=== PATIENT | female | born 1960 | race Caucasian/White ===

== ENCOUNTER 2020-12-26 12:13 | Inpatient (IN) | payer OTHER ==
[2020-12-26 13:13] LABS: #Basophils 0.1 10x3/uL (0.0-0.2); #Eosinphils 0.2 10x3/uL (0.0-0.5); #Monocytes 0.5 10x3/uL (0.0-1.1); #Neutrophils 6.5 10x3/uL (1.5-8.4); %Basophils 0.7 % (0.0-2.0); %Eosinophils 1.9 % (0.0-6.0); %Lymphocytes 12.8 % (18.0-47.0); %Monocytes 5.8 % (0.0-10.0); %Neutrophils 78.6 % (40.0-75.0); Hemoglobin 13.7 g/dL (12.0-15.5); Mean Corpuscular HGB CONC 32.3 g/dL (32.0-36.0); Mean Corpuscular Hemoglobin 29.8 pg (27.0-33.0); Mean Corpuscular Volume 92.2 fl (81.6-98.3); Mean Platelet Volume 9.1 fl (7.4-10.4); Platelet Count 251 10x3/uL (150-450); RBC Distribution Width 13.8 % (11.5-14.5); White Blood Cell (WBC) Count 8.3 10x3/uL (3.5-10.5)
[2020-12-26 13:27] LABS: ALT (SGPT) 14 U/L (8-55); AST (SGOT) 13 U/L (5-34); Albumin 4.1 g/dL (3.5-5.0); Alkaline Phosphatase 79 U/L (40-110); Anion Gap 14 mmol/L (10-20); BUN (Urea Nitrogen) 5 mg/dL (9.8-20.1); Bilirubin, Total 0.4 mg/dL (0.2-1.2); Calc. Creatinine Clearance 0 mL/min (70-130); Calcium 9.3 mg/dL (7.8-10.44); Carbon Dioxide 25 mmol/L (22-29); Chloride 105 mmol/L (98-107); Glucose 92 mg/dL (70-105); Potassium 3.8 mmol/L (3.5-5.1); Protein, Total 7.1 g/dL (6.0-8.3); Sodium 140 mmol/L (136-145)
[2020-12-26] MEDS ORDERED: methylPREDNISolone Sod Succ/PF 125 MG/2 ML VIAL ONE (14:10)
[2020-12-26] MEDS ORDERED: Magnesium 2 GM/50 ML BAG (IN WATER) ONE (14:10)
[2020-12-26] MEDS ORDERED: Cefepime 2 GM VIAL ONE (14:51)
[2020-12-26 14:54] LABS: SARS-CoV-2 NAA Rapid Test Not Detected (NotDetected)
[2020-12-26] MEDS ORDERED: Ondansetron PF 4 MG/2 ML Vial ONE (15:03)
[2020-12-26 20:47] VITALS: BMI 45.3
[2020-12-26] MEDS ORDERED: Apixaban 5 MG TAB PO SCH (22:45)
[2020-12-26] MEDS ORDERED: Rosuvastatin 20 MG TAB PO SCH (23:00)
[2020-12-26] MEDS ORDERED: buPROPion 75 MG TAB PO SCH (23:00)
[2020-12-26] MEDS ORDERED: Metoprolol Tartrate 25 MG TAB PO SCH (23:00)
[2020-12-26] MEDS: methylPREDNISolone Sod Succ 40 MG VIAL IVP SCH (23:01)
[2020-12-26] MEDS: Acetaminophen 325 MG TAB PO PRN (23:04)
[2020-12-27 04:13] LABS: Anion Gap 15 mmol/L (10-20); BUN (Urea Nitrogen) 7 mg/dL (9.8-20.1); Calc. Creatinine Clearance 139 mL/min (70-130); Calcium 9.1 mg/dL (7.8-10.44); Carbon Dioxide 23 mmol/L (22-29); Chloride 107 mmol/L (98-107); Glucose 149 mg/dL (70-105); Potassium 4.2 mmol/L (3.5-5.1); Sodium 141 mmol/L (136-145)
[2020-12-27 04:21] LABS: #Monocytes 0.1 10x3/uL (0.0-1.1); #Neutrophils 5.3 10x3/uL (1.5-8.4); %Basophils 0.2 % (0.0-2.0); %Lymphocytes 9.1 % (18.0-47.0); %Neutrophils 89.2 % (40.0-75.0); Hemoglobin 13.3 g/dL (12.0-15.5); Mean Corpuscular HGB CONC 32.7 g/dL (32.0-36.0); Mean Corpuscular Volume 91.9 fl (81.6-98.3); Mean Platelet Volume 9.3 fl (7.4-10.4); Platelet Count 278 10x3/uL (150-450); RBC Distribution Width 13.9 % (11.5-14.5); Red Blood Cell (RBC) Count 4.43 10x6/uL (3.90-5.03)
[2020-12-27] MEDS: methylPREDNISolone Sod Succ 40 MG VIAL IVP SCH ×4 (04:36→20:27)
[2020-12-27] MEDS: Budesonide 0.5 MG/2 ML NEB NEB PRN (06:55)
[2020-12-27] MEDS: Mometasone/Formoterol 200/5 60 PUFF INH SCH ×2 (07:01→18:50)
[2020-12-27] MEDS: Clopidogrel Bisulfate 75 MG TAB PO SCH (10:47)
[2020-12-27] MEDS: buPROPion 75 MG TAB PO SCH ×2 (10:47→20:28)
[2020-12-27] MEDS: Apixaban 5 MG TAB PO SCH ×2 (10:48→20:27)
[2020-12-27] MEDS: Lisinopril 2.5 MG TAB PO SCH (10:49)
[2020-12-27] MEDS: guaiFENesin ER 600 MG TAB PO SCH ×2 (10:49→20:34)
[2020-12-27] MEDS: Metoprolol Tartrate 25 MG TAB PO SCH ×2 (10:49→20:27)
[2020-12-27] MEDS: Acetaminophen 325 MG TAB PO PRN ×3 (10:59→20:29)
[2020-12-27] MEDS: Rosuvastatin 20 MG TAB PO SCH (20:29)
[2020-12-27] MEDS: GUAIFENESIN SF SOLN 200 MG/10 ML UDCUP PO PRN (21:59)
[2020-12-28] MEDS: methylPREDNISolone Sod Succ 40 MG VIAL IVP SCH ×2 (03:09→21:47)
[2020-12-28] MEDS: GUAIFENESIN SF SOLN 200 MG/10 ML UDCUP PO PRN ×2 (03:14→21:47)
[2020-12-28 05:03] LABS: #Monocytes 0.2 10x3/uL (0.0-1.1); #Neutrophils 9.9 10x3/uL (1.5-8.4); %Basophils 0.1 % (0.0-2.0); %Lymphocytes 6.3 % (18.0-47.0); %Monocytes 1.7 % (0.0-10.0); %Neutrophils 91.4 % (40.0-75.0); Hemoglobin 13.1 g/dL (12.0-15.5); Mean Corpuscular HGB CONC 31.9 g/dL (32.0-36.0); Mean Corpuscular Hemoglobin 29.6 pg (27.0-33.0); Mean Corpuscular Volume 92.8 fl (81.6-98.3); Mean Platelet Volume 9.4 fl (7.4-10.4); Platelet Count 291 10x3/uL (150-450); RBC Distribution Width 14.2 % (11.5-14.5); Red Blood Cell (RBC) Count 4.43 10x6/uL (3.90-5.03); White Blood Cell (WBC) Count 10.9 10x3/uL (3.5-10.5)
[2020-12-28 05:15] LABS: Anion Gap 15 mmol/L (10-20); BUN (Urea Nitrogen) 10 mg/dL (9.8-20.1); Calc. Creatinine Clearance 129 mL/min (70-130); Calcium 9.1 mg/dL (7.8-10.44); Carbon Dioxide 24 mmol/L (22-29); Chloride 106 mmol/L (98-107); Glucose 226 mg/dL (70-105); Sodium 141 mmol/L (136-145)
[2020-12-28] MEDS: Mometasone/Formoterol 200/5 60 PUFF INH SCH ×2 (06:50→18:45)
[2020-12-28] MEDS: Apixaban 5 MG TAB PO SCH ×2 (08:42→21:47)
[2020-12-28] MEDS: Metoprolol Tartrate 25 MG TAB PO SCH ×2 (08:42→21:48)
[2020-12-28] MEDS: guaiFENesin ER 600 MG TAB PO SCH ×2 (08:42→22:00)
[2020-12-28] MEDS: Lisinopril 2.5 MG TAB PO SCH (08:42)
[2020-12-28] MEDS: buPROPion 75 MG TAB PO SCH ×2 (08:43→21:47)
[2020-12-28] MEDS: Acetaminophen 325 MG TAB PO PRN (08:43)
[2020-12-28] MEDS: Clopidogrel Bisulfate 75 MG TAB PO SCH (08:43)
[2020-12-28] MEDS ORDERED: FLU VACC QS2021-22(6MOS UP)/PF 60 MCG/0.5 ML SYRINGE IM ONE (09:00)
[2020-12-28] MEDS ORDERED: methylPREDNISolone Sod Succ 40 MG VIAL IVP SCH (09:00)
[2020-12-28] MEDS: Budesonide 0.5 MG/2 ML NEB NEB PRN (18:45)
[2020-12-28] MEDS: Rosuvastatin 20 MG TAB PO SCH (21:49)
[2020-12-29 04:13] LABS: Anion Gap 14 mmol/L (10-20); BUN (Urea Nitrogen) 14 mg/dL (9.8-20.1); Calc. Creatinine Clearance 143 mL/min (70-130); Calcium 9.1 mg/dL (7.8-10.44); Carbon Dioxide 27 mmol/L (22-29); Chloride 106 mmol/L (98-107); Glucose 130 mg/dL (70-105); Potassium 4.6 mmol/L (3.5-5.1); Sodium 142 mmol/L (136-145)
[2020-12-29 04:16] LABS: #Monocytes 0.3 10x3/uL (0.0-1.1); #Neutrophils 7.4 10x3/uL (1.5-8.4); %Basophils 0.2 % (0.0-2.0); %Lymphocytes 8.9 % (18.0-47.0); %Monocytes 3.4 % (0.0-10.0); %Neutrophils 86.4 % (40.0-75.0); Hemoglobin 13.3 g/dL (12.0-15.5); Mean Corpuscular HGB CONC 30.9 g/dL (32.0-36.0); Mean Corpuscular Volume 93.9 fl (81.6-98.3); Mean Platelet Volume 9.5 fl (7.4-10.4); Platelet Count 312 10x3/uL (150-450); RBC Distribution Width 14.3 % (11.5-14.5); Red Blood Cell (RBC) Count 4.58 10x6/uL (3.90-5.03); White Blood Cell (WBC) Count 8.5 10x3/uL (3.5-10.5)
[2020-12-29] MEDS: Mometasone/Formoterol 200/5 60 PUFF INH SCH ×2 (09:05→19:00)
[2020-12-29] MEDS: Acetaminophen 325 MG TAB PO PRN ×2 (10:17→20:57)
[2020-12-29] MEDS: guaiFENesin ER 600 MG TAB PO SCH (10:18)
[2020-12-29] MEDS: Metoprolol Tartrate 25 MG TAB PO SCH ×2 (10:18→20:57)
[2020-12-29] MEDS: Apixaban 5 MG TAB PO SCH ×2 (10:18→20:57)
[2020-12-29] MEDS: Clopidogrel Bisulfate 75 MG TAB PO SCH (10:18)
[2020-12-29] MEDS: Lisinopril 2.5 MG TAB PO SCH (10:19)
[2020-12-29] MEDS: buPROPion 75 MG TAB PO SCH ×2 (10:19→20:57)
[2020-12-29] MEDS: methylPREDNISolone Sod Succ 40 MG VIAL IVP SCH ×2 (10:20→20:58)
[2020-12-29] MEDS: Rosuvastatin 20 MG TAB PO SCH (20:56)
[2020-12-29] MEDS: GUAIFENESIN SF SOLN 200 MG/10 ML UDCUP PO PRN (20:57)
[2020-12-30] MEDS: Budesonide 0.5 MG/2 ML NEB NEB PRN (08:50)
[2020-12-30] MEDS: Mometasone/Formoterol 200/5 60 PUFF INH SCH ×2 (09:01→19:25)
[2020-12-30] MEDS: guaiFENesin ER 600 MG TAB PO SCH ×2 (09:09→21:47)
[2020-12-30] MEDS: Apixaban 5 MG TAB PO SCH ×2 (09:09→21:47)
[2020-12-30] MEDS: Clopidogrel Bisulfate 75 MG TAB PO SCH (09:09)
[2020-12-30] MEDS: Metoprolol Tartrate 25 MG TAB PO SCH ×2 (09:09→21:47)
[2020-12-30] MEDS: Lisinopril 2.5 MG TAB PO SCH (09:10)
[2020-12-30] MEDS: buPROPion 75 MG TAB PO SCH ×2 (09:10→21:47)
[2020-12-30] MEDS: methylPREDNISolone Sod Succ 40 MG VIAL IVP SCH ×2 (09:10→21:47)
[2020-12-30 09:15] LABS: #Monocytes 0.4 10x3/uL (0.0-1.1); #Neutrophils 6.7 10x3/uL (1.5-8.4); %Basophils 0.2 % (0.0-2.0); %Lymphocytes 13.6 % (18.0-47.0); %Monocytes 4.5 % (0.0-10.0); %Neutrophils 80.4 % (40.0-75.0); Hemoglobin 14.2 g/dL (12.0-15.5); Mean Corpuscular HGB CONC 32.3 g/dL (32.0-36.0); Mean Corpuscular Hemoglobin 29.6 pg (27.0-33.0); Mean Corpuscular Volume 91.6 fl (81.6-98.3); Mean Platelet Volume 9.2 fl (7.4-10.4); Platelet Count 336 10x3/uL (150-450); RBC Distribution Width 14.2 % (11.5-14.5); Red Blood Cell (RBC) Count 4.79 10x6/uL (3.90-5.03); White Blood Cell (WBC) Count 8.4 10x3/uL (3.5-10.5)
[2020-12-30 09:37] LABS: ALT (SGPT) 15 U/L (8-55); AST (SGOT) 13 U/L (5-34); Alkaline Phosphatase 66 U/L (40-110); Anion Gap 15 mmol/L (10-20); BUN (Urea Nitrogen) 14 mg/dL (9.8-20.1); Bilirubin, Total 0.2 mg/dL (0.2-1.2); Calc. Creatinine Clearance 143 mL/min (70-130); Calcium 9.2 mg/dL (7.8-10.44); Carbon Dioxide 27 mmol/L (22-29); Chloride 103 mmol/L (98-107); Glucose 126 mg/dL (70-105); Magnesium 2.2 mg/dL (1.6-2.6); Phosphorus 3.9 mg/dL (2.3-4.7); Sodium 141 mmol/L (136-145)
[2020-12-30 09:44] LABS: Hemoglobin A1c 5.6 % (4.0-6.0)
[2020-12-30] MEDS ORDERED: Polyethylene Glycol 3350 17 GM Packet PO SCH (16:30)
[2020-12-30] MEDS ORDERED: Fluticasone Propionate Nasal Spray 16 gm Bottle NASAL SCH (21:00)
[2020-12-30] MEDS ORDERED: Senokot 8.6 MG TAB PO SCH (21:00)
[2020-12-30] MEDS: Rosuvastatin 20 MG TAB PO SCH (21:47)
[2020-12-31 05:49] LABS: #Monocytes 0.2 10x3/uL (0.0-1.1); #Neutrophils 5.6 10x3/uL (1.5-8.4); %Basophils 0.1 % (0.0-2.0); %Monocytes 3.5 % (0.0-10.0); %Neutrophils 83.1 % (40.0-75.0); Hemoglobin 13.7 g/dL (12.0-15.5); Mean Corpuscular HGB CONC 31.4 g/dL (32.0-36.0); Mean Corpuscular Hemoglobin 29.3 pg (27.0-33.0); Mean Corpuscular Volume 93.4 fl (81.6-98.3); Mean Platelet Volume 9.4 fl (7.4-10.4); Platelet Count 325 10x3/uL (150-450); RBC Distribution Width 14.3 % (11.5-14.5); Red Blood Cell (RBC) Count 4.67 10x6/uL (3.90-5.03); White Blood Cell (WBC) Count 6.8 10x3/uL (3.5-10.5)
[2020-12-31 06:00] LABS: ALT (SGPT) 21 U/L (8-55); AST (SGOT) 19 U/L (5-34); Albumin 3.8 g/dL (3.5-5.0); Alkaline Phosphatase 65 U/L (40-110); Anion Gap 17 mmol/L (10-20); BUN (Urea Nitrogen) 16 mg/dL (9.8-20.1); Bilirubin, Total 0.2 mg/dL (0.2-1.2); Calc. Creatinine Clearance 145 mL/min (70-130); Calcium 8.9 mg/dL (7.8-10.44); Carbon Dioxide 26 mmol/L (22-29); Chloride 103 mmol/L (98-107); Globulin 2.4 g/dL (2.4-3.5); Glucose 129 mg/dL (70-105); Magnesium 2.1 mg/dL (1.6-2.6); Phosphorus 4.4 mg/dL (2.3-4.7); Potassium 4.5 mmol/L (3.5-5.1); Protein, Total 6.2 g/dL (6.0-8.3); Sodium 141 mmol/L (136-145)
[2020-12-31] MEDS: Mometasone/Formoterol 200/5 60 PUFF INH SCH (07:40)
[2020-12-31] MEDS: Budesonide 0.5 MG/2 ML NEB NEB PRN (07:40)
[2020-12-31] MEDS ORDERED: Polyethylene Glycol 3350 17 GM Packet PO SCH (09:00)
[2020-12-31] MEDS: Apixaban 5 MG TAB PO SCH (10:32)
[2020-12-31] MEDS: methylPREDNISolone Sod Succ 40 MG VIAL IVP SCH (10:32)
[2020-12-31] MEDS: Metoprolol Tartrate 25 MG TAB PO SCH (10:32)
[2020-12-31] MEDS: guaiFENesin ER 600 MG TAB PO SCH (10:32)
[2020-12-31] MEDS: Clopidogrel Bisulfate 75 MG TAB PO SCH (10:32)
[2020-12-31] MEDS: buPROPion 75 MG TAB PO SCH (10:33)
[2020-12-31] MEDS: Lisinopril 2.5 MG TAB PO SCH (10:33)
[2020-12-31 17:34] VITALS: BP 122/77
[2020-12-31 17:45] VITALS: TEMP 96.6
== END 2020-12-31 17:27 | disposition home or self-care (01) | DRG 189 ==
LOC: CSHERS 12:13 → UNDOADMOB 12:14 → CSHTELE 12:14 → OBSVTOIN 12-28 15:24
PROVIDERS: ADMIT Internal Medicine; ATTEND Family Medicine
DX: J96.01 Acute respiratory failure with hypoxia (principal); J44.1 Chronic obstructive pulmonary disease with (acute) exacerbation; Z20.822 Contact with and (suspected) exposure to COVID-19; E78.5 Hyperlipidemia, unspecified; I25.10 Atherosclerotic heart disease of native coronary artery without angina pectoris; G47.33 Obstructive sleep apnea (adult) (pediatric); D35.01 Benign neoplasm of right adrenal gland; K76.89 Other specified diseases of liver; F31.76 Bipolar disorder, in full remission, most recent episode depressed; I10 Essential (primary) hypertension; R73.9 Hyperglycemia, unspecified; Z88.0 Allergy status to penicillin; Z79.01 Long term (current) use of anticoagulants; Z79.899 Other long term (current) drug therapy; Z86.711 Personal history of pulmonary embolism; Z86.718 Personal history of other venous thrombosis and embolism; Z87.891 Personal history of nicotine dependence; Z95.5 Presence of coronary angioplasty implant and graft
CPT/HCPCS: 36415; 71045; 80048; 80053; 83036; 83605; 83735; 83880; 84100; 84484; 85025; 87040; 93005; 94640; 94664; 94760; 94762; 96376; G0378; J0692; J1956; J2405; J2920; J2930; J3475; J7620; J7626; U0002

== ENCOUNTER 2021-03-14 18:08 | Inpatient (IN) | payer BC, OTHER ==
[2021-03-14 18:55] LABS: #Basophils 0.1 10x3/uL (0.0-0.2); #Eosinphils 0.1 10x3/uL (0.0-0.5); #Monocytes 0.8 10x3/uL (0.0-1.1); #Neutrophils 9.8 10x3/uL (1.5-8.4); %Basophils 0.5 % (0.0-2.0); %Eosinophils 0.8 % (0.0-6.0); %Lymphocytes 14.8 % (18.0-47.0); %Neutrophils 77.4 % (40.0-75.0); Hemoglobin 11.9 g/dL (12.0-15.5); Mean Corpuscular Hemoglobin 29.7 pg (27.0-33.0); Mean Corpuscular Volume 92.8 fl (81.6-98.3); Mean Platelet Volume 9.2 fl (7.4-10.4); Platelet Count 329 10x3/uL (150-450); RBC Distribution Width 13.4 % (11.5-14.5); Red Blood Cell (RBC) Count 4.01 10x6/uL (3.90-5.03); White Blood Cell (WBC) Count 12.7 10x3/uL (3.5-10.5)
[2021-03-14 19:08] LABS: ALT (SGPT) 11 U/L (8-55); AST (SGOT) 14 U/L (5-34); Albumin 3.9 g/dL (3.5-5.0); Alkaline Phosphatase 90 U/L (40-110); Anion Gap 16 mmol/L (10-20); BUN (Urea Nitrogen) 6 mg/dL (9.8-20.1); Bilirubin, Total 0.2 mg/dL (0.2-1.2); Calc. Creatinine Clearance 0 mL/min (70-130); Calcium 8.6 mg/dL (7.8-10.44); Carbon Dioxide 30 mmol/L (22-29); Chloride 98 mmol/L (98-107); Globulin 2.4 g/dL (2.4-3.5); Glucose 111 mg/dL (70-105); Potassium 3.5 mmol/L (3.5-5.1); Protein, Total 6.3 g/dL (6.0-8.3); Sodium 140 mmol/L (136-145)
[2021-03-14] MEDS ORDERED: Ventolin HFA Inhaler 60 PUFF INHALER ONE (20:19)
[2021-03-14] MEDS ORDERED: Dexamethasone 10 MG/ML VIAL ONE (20:19)
[2021-03-14 21:40] LABS: SARS-CoV-2 NAA Rapid Test Not Detected (NotDetected)
[2021-03-15] MEDS ORDERED: Senokot S 8.6-50 MG TAB PO PRN (04:54)
[2021-03-15] MEDS ORDERED: cefTRIAXone\\ROCEPHIN 2 GM VIAL ONE (05:11)
[2021-03-15] MEDS ORDERED: Azithromycin 500 MG VIAL ONE (05:11)
[2021-03-15] MEDS: cefTRIAXone\\ROCEPHIN 2 GM in Sodium Chloride 0.9% 100 ML IVPB SCH (05:20)
[2021-03-15] MEDS ORDERED: methylPREDNISolone Sod Succ 40 MG VIAL ONE (05:42)
[2021-03-15] MEDS ORDERED: Acetaminophen 325 MG TAB ONE (05:57)
[2021-03-15] MEDS: Azithromycin 500 MG in Sodium Chloride 0.9% 250 ML 250 ML IVPB SCH (06:04)
[2021-03-15] MEDS: methylPREDNISolone Sod Succ 40 MG VIAL IVP SCH ×3 (06:05→17:04)
[2021-03-15] MEDS: Acetaminophen 325 MG TAB PO PRN ×3 (06:05→20:20)
[2021-03-15 06:20] LABS: #Monocytes 0.1 10x3/uL (0.0-1.1); #Neutrophils 8.7 10x3/uL (1.5-8.4); %Basophils 0.3 % (0.0-2.0); %Lymphocytes 8.6 % (18.0-47.0); %Neutrophils 88.6 % (40.0-75.0); Hemoglobin 12.1 g/dL (12.0-15.5); Mean Corpuscular HGB CONC 32.3 g/dL (32.0-36.0); Mean Corpuscular Hemoglobin 29.7 pg (27.0-33.0); Mean Corpuscular Volume 92.1 fl (81.6-98.3); Mean Platelet Volume 9.1 fl (7.4-10.4); Platelet Count 343 10x3/uL (150-450); RBC Distribution Width 13.2 % (11.5-14.5); Red Blood Cell (RBC) Count 4.07 10x6/uL (3.90-5.03); White Blood Cell (WBC) Count 9.8 10x3/uL (3.5-10.5)
[2021-03-15 06:36] LABS: Anion Gap 17 mmol/L (10-20); BUN (Urea Nitrogen) 8 mg/dL (9.8-20.1); Calc. Creatinine Clearance 0 mL/min (70-130); Calcium 9.4 mg/dL (7.8-10.44); Carbon Dioxide 27 mmol/L (22-29); Chloride 99 mmol/L (98-107); Glucose 145 mg/dL (70-105); Magnesium 1.9 mg/dL (1.6-2.6); Potassium 3.7 mmol/L (3.5-5.1); Sodium 139 mmol/L (136-145)
[2021-03-15] MEDS ORDERED: Budesonide 0.5 MG/2 ML NEB ONE (06:42)
[2021-03-15] MEDS: Budesonide 0.5 MG/2 ML NEB NEB SCH ×2 (06:45→19:12)
[2021-03-15 08:54] VITALS: BMI 46.7
[2021-03-15] MEDS: buPROPion 75 MG TAB PO SCH ×2 (09:01→20:14)
[2021-03-15] MEDS: Ezetimibe 10 MG TAB PO SCH (09:01)
[2021-03-15] MEDS: Apixaban 5 MG TAB PO SCH ×2 (09:02→20:13)
[2021-03-15] MEDS: Clopidogrel Bisulfate 75 MG TAB PO SCH (09:02)
[2021-03-15] MEDS: Metoprolol Tartrate 25 MG TAB PO SCH ×2 (09:03→20:13)
[2021-03-15] MEDS: Lisinopril 10 MG TAB PO SCH (09:04)
[2021-03-15] MEDS: Nicotine 21 MG PATCH TD SCH (09:05)
[2021-03-15] MEDS: Arformoterol 15 MCG/2 ML NEB NEB SCH ×2 (09:06→19:12)
[2021-03-15] MEDS ORDERED: Gabapentin 100 MG CAP PO PRN (12:17)
[2021-03-15] MEDS: Rosuvastatin 20 MG TAB PO SCH (20:13)
[2021-03-16] MEDS: methylPREDNISolone Sod Succ 40 MG VIAL IVP SCH ×5 (00:04→21:23)
[2021-03-16 04:32] LABS: #Basophils 0.1 10x3/uL (0.0-0.2); #Monocytes 0.6 10x3/uL (0.0-1.1); #Neutrophils 10.3 10x3/uL (1.5-8.4); %Basophils 0.4 % (0.0-2.0); %Lymphocytes 9.4 % (18.0-47.0); %Monocytes 4.5 % (0.0-10.0); %Neutrophils 82.5 % (40.0-75.0); Hemoglobin 11.9 g/dL (12.0-15.5); Mean Corpuscular HGB CONC 32.2 g/dL (32.0-36.0); Mean Corpuscular Hemoglobin 29.7 pg (27.0-33.0); Mean Platelet Volume 9.2 fl (7.4-10.4); Platelet Count 380 10x3/uL (150-450); RBC Distribution Width 13.2 % (11.5-14.5); Red Blood Cell (RBC) Count 4.01 10x6/uL (3.90-5.03); White Blood Cell (WBC) Count 12.5 10x3/uL (3.5-10.5)
[2021-03-16 04:56] LABS: Anion Gap 15 mmol/L (10-20); BUN (Urea Nitrogen) 8 mg/dL (9.8-20.1); Calc. Creatinine Clearance 153 mL/min (70-130); Calcium 9.6 mg/dL (7.8-10.44); Carbon Dioxide 30 mmol/L (22-29); Chloride 101 mmol/L (98-107); Glucose 151 mg/dL (70-105); Potassium 3.6 mmol/L (3.5-5.1); Sodium 142 mmol/L (136-145)
[2021-03-16] MEDS: cefTRIAXone\\ROCEPHIN 2 GM in Sodium Chloride 0.9% 100 ML IVPB SCH (05:19)
[2021-03-16] MEDS: Azithromycin 500 MG in Sodium Chloride 0.9% 250 ML 250 ML IVPB SCH (06:22)
[2021-03-16] MEDS: Arformoterol 15 MCG/2 ML NEB NEB SCH ×2 (07:00→19:40)
[2021-03-16] MEDS: Budesonide 0.5 MG/2 ML NEB NEB SCH ×2 (07:01→19:40)
[2021-03-16] MEDS: Metoprolol Tartrate 25 MG TAB PO SCH ×2 (09:05→21:20)
[2021-03-16] MEDS: Nicotine 21 MG PATCH TD SCH (09:05)
[2021-03-16] MEDS: Lisinopril 10 MG TAB PO SCH (09:05)
[2021-03-16] MEDS: buPROPion 75 MG TAB PO SCH ×2 (09:09→21:20)
[2021-03-16] MEDS: Clopidogrel Bisulfate 75 MG TAB PO SCH (09:10)
[2021-03-16] MEDS: Ezetimibe 10 MG TAB PO SCH (09:10)
[2021-03-16] MEDS: Apixaban 5 MG TAB PO SCH ×2 (09:10→21:20)
[2021-03-16] MEDS: Acetaminophen 325 MG TAB PO PRN (10:07)
[2021-03-16] MEDS: Fluticasone Propionate Nasal Spray 16 gm Bottle NASAL SCH (12:31)
[2021-03-16] MEDS: Rosuvastatin 20 MG TAB PO SCH (21:20)
[2021-03-16] MEDS: guaiFENesin 100 MG/5 ML UDCUP PO PRN (21:30)
[2021-03-17 05:13] LABS: Anion Gap 18 mmol/L (10-20); BUN (Urea Nitrogen) 13 mg/dL (9.8-20.1); Calc. Creatinine Clearance 145 mL/min (70-130); Calcium 9.5 mg/dL (7.8-10.44); Carbon Dioxide 27 mmol/L (22-29); Chloride 101 mmol/L (98-107); Glucose 117 mg/dL (70-105); Magnesium 2.1 mg/dL (1.6-2.6); Potassium 3.5 mmol/L (3.5-5.1); Sodium 142 mmol/L (136-145)
[2021-03-17 05:18] LABS: Hemoglobin 12.9 g/dL (12.0-15.5); Mean Corpuscular HGB CONC 32.6 g/dL (32.0-36.0); Mean Corpuscular Hemoglobin 29.9 pg (27.0-33.0); Mean Corpuscular Volume 91.9 fl (81.6-98.3); Mean Platelet Volume 8.9 fl (7.4-10.4); Platelet Count 428 10x3/uL (150-450); RBC Distribution Width 13.5 % (11.5-14.5); Red Blood Cell (RBC) Count 4.31 10x6/uL (3.90-5.03); White Blood Cell (WBC) Count 16.1 10x3/uL (3.5-10.5)
[2021-03-17] MEDS: cefTRIAXone\\ROCEPHIN 2 GM in Sodium Chloride 0.9% 100 ML IVPB SCH (05:40)
[2021-03-17] MEDS: methylPREDNISolone Sod Succ 40 MG VIAL IVP SCH ×3 (05:44→21:52)
[2021-03-17 06:10] LABS: MDiff Complete? YES
[2021-03-17 06:16] LABS: Band 8 % (5-11); Lymphocytes 13 % (21-51); Monocytes 6 % (0-10); Neutrophil 73 % (42-75)
[2021-03-17 06:17] LABS: Platelet Morphology Comment Appears Adequate; RBC Morphology Normal
[2021-03-17] MEDS: Azithromycin 500 MG in Sodium Chloride 0.9% 250 ML 250 ML IVPB SCH (07:00)
[2021-03-17] MEDS: Arformoterol 15 MCG/2 ML NEB NEB SCH ×2 (07:15→18:53)
[2021-03-17] MEDS: Budesonide 0.5 MG/2 ML NEB NEB SCH ×2 (07:16→18:53)
[2021-03-17] MEDS: Clopidogrel Bisulfate 75 MG TAB PO SCH (10:11)
[2021-03-17] MEDS: Ezetimibe 10 MG TAB PO SCH (10:13)
[2021-03-17] MEDS: buPROPion 75 MG TAB PO SCH ×2 (10:13→20:30)
[2021-03-17] MEDS: Lisinopril 10 MG TAB PO SCH (10:13)
[2021-03-17] MEDS: Fluticasone Propionate Nasal Spray 16 gm Bottle NASAL SCH (10:13)
[2021-03-17] MEDS: Apixaban 5 MG TAB PO SCH ×2 (10:14→20:23)
[2021-03-17] MEDS: Nicotine 21 MG PATCH TD SCH (10:14)
[2021-03-17] MEDS: Metoprolol Tartrate 25 MG TAB PO SCH ×2 (10:14→20:23)
[2021-03-17] MEDS: Acetaminophen 325 MG TAB PO PRN (20:23)
[2021-03-17] MEDS: Rosuvastatin 20 MG TAB PO SCH (20:23)
[2021-03-17] MEDS: guaiFENesin 100 MG/5 ML UDCUP PO PRN (20:31)
[2021-03-18] MEDS ORDERED: Sodium Chloride 0.9% 250 ML 250 ML ONE (04:47)
[2021-03-18] MEDS: cefTRIAXone\\ROCEPHIN 2 GM in Sodium Chloride 0.9% 100 ML IVPB SCH (04:47)
[2021-03-18 04:50] LABS: Hemoglobin 11.8 g/dL (12.0-15.5); Mean Corpuscular HGB CONC 31.6 g/dL (32.0-36.0); Mean Corpuscular Hemoglobin 29.1 pg (27.0-33.0); Mean Corpuscular Volume 91.9 fl (81.6-98.3); Mean Platelet Volume 9.1 fl (7.4-10.4); Platelet Count 374 10x3/uL (150-450); RBC Distribution Width 13.2 % (11.5-14.5); Red Blood Cell (RBC) Count 4.06 10x6/uL (3.90-5.03); White Blood Cell (WBC) Count 11.4 10x3/uL (3.5-10.5)
[2021-03-18 05:11] LABS: Anion Gap 17 mmol/L (10-20); BUN (Urea Nitrogen) 13 mg/dL (9.8-20.1); Calc. Creatinine Clearance 151 mL/min (70-130); Calcium 8.9 mg/dL (7.8-10.44); Carbon Dioxide 28 mmol/L (22-29); Chloride 101 mmol/L (98-107); Glucose 158 mg/dL (70-105); Potassium 3.6 mmol/L (3.5-5.1); Sodium 142 mmol/L (136-145)
[2021-03-18 05:25] LABS: MDiff Complete? YES; Manual Diff?? YES
[2021-03-18] MEDS: Azithromycin 500 MG in Sodium Chloride 0.9% 250 ML 250 ML IVPB SCH (05:36)
[2021-03-18 05:52] LABS: Band 11 % (5-11); Lymphocytes 12 % (21-51); Metamyelocyte 1 % (0-0); Monocytes 6 % (0-10); Neutrophil 68 % (42-75); Reactive Lymphocytes 2 % (0-10)
[2021-03-18] MEDS: Arformoterol 15 MCG/2 ML NEB NEB SCH ×2 (07:23→19:55)
[2021-03-18] MEDS: Budesonide 0.5 MG/2 ML NEB NEB SCH ×2 (07:24→19:55)
[2021-03-18] MEDS: Metoprolol Tartrate 25 MG TAB PO SCH ×2 (08:40→20:29)
[2021-03-18] MEDS: Ezetimibe 10 MG TAB PO SCH (08:40)
[2021-03-18] MEDS: buPROPion 75 MG TAB PO SCH ×2 (08:40→20:31)
[2021-03-18] MEDS: Fluticasone Propionate Nasal Spray 16 gm Bottle NASAL SCH (08:40)
[2021-03-18] MEDS: Apixaban 5 MG TAB PO SCH ×2 (08:40→20:29)
[2021-03-18] MEDS: Lisinopril 10 MG TAB PO SCH (08:40)
[2021-03-18] MEDS: predniSONE 20 MG TAB PO SCH (08:40)
[2021-03-18] MEDS: Clopidogrel Bisulfate 75 MG TAB PO SCH (08:40)
[2021-03-18] MEDS: Nicotine 21 MG PATCH TD SCH (09:00)
[2021-03-18] MEDS ORDERED: predniSONE 20 MG TAB PO SCH (17:00)
[2021-03-18] MEDS: Acetaminophen 325 MG TAB PO PRN (20:28)
[2021-03-18] MEDS: Rosuvastatin 20 MG TAB PO SCH (20:29)
[2021-03-18] MEDS: guaiFENesin 100 MG/5 ML UDCUP PO PRN (21:03)
[2021-03-19] MEDS ORDERED: Sodium Chloride 0.9% 100 ML ONE (04:59)
[2021-03-19] MEDS: cefTRIAXone\\ROCEPHIN 2 GM in Sodium Chloride 0.9% 100 ML IVPB SCH (05:15)
[2021-03-19] MEDS: Azithromycin 500 MG in Sodium Chloride 0.9% 250 ML 250 ML IVPB SCH (06:10)
[2021-03-19] MEDS: Lisinopril 10 MG TAB PO SCH (06:38)
[2021-03-19] MEDS: Arformoterol 15 MCG/2 ML NEB NEB SCH ×2 (07:08→19:35)
[2021-03-19] MEDS: Budesonide 0.5 MG/2 ML NEB NEB SCH ×2 (07:13→19:35)
[2021-03-19] MEDS: Nicotine 21 MG PATCH TD SCH (09:16)
[2021-03-19] MEDS: Ezetimibe 10 MG TAB PO SCH (09:19)
[2021-03-19] MEDS: Metoprolol Tartrate 25 MG TAB PO SCH ×2 (09:22→20:20)
[2021-03-19] MEDS: Clopidogrel Bisulfate 75 MG TAB PO SCH (09:22)
[2021-03-19] MEDS: Apixaban 5 MG TAB PO SCH ×2 (09:22→20:20)
[2021-03-19] MEDS: buPROPion 75 MG TAB PO SCH ×2 (09:24→20:20)
[2021-03-19] MEDS: Acetaminophen 325 MG TAB PO PRN (09:25)
[2021-03-19] MEDS: Fluticasone Propionate Nasal Spray 16 gm Bottle NASAL SCH (09:28)
[2021-03-19] MEDS: predniSONE 20 MG TAB PO SCH (10:42)
[2021-03-19] MEDS: Rosuvastatin 20 MG TAB PO SCH (20:20)
[2021-03-20] MEDS: Acetaminophen 325 MG TAB PO PRN (03:40)
[2021-03-20] MEDS: Arformoterol 15 MCG/2 ML NEB NEB SCH (05:30)
[2021-03-20] MEDS: Budesonide 0.5 MG/2 ML NEB NEB SCH (05:30)
[2021-03-20] MEDS: cefTRIAXone\\ROCEPHIN 2 GM in Sodium Chloride 0.9% 100 ML IVPB SCH (06:04)
[2021-03-20] MEDS: Azithromycin 500 MG in Sodium Chloride 0.9% 250 ML 250 ML IVPB SCH (06:11)
[2021-03-20] MEDS: buPROPion 75 MG TAB PO SCH (08:28)
[2021-03-20] MEDS: predniSONE 20 MG TAB PO SCH (08:28)
[2021-03-20] MEDS: Lisinopril 10 MG TAB PO SCH (08:29)
[2021-03-20] MEDS: Clopidogrel Bisulfate 75 MG TAB PO SCH (08:29)
[2021-03-20] MEDS: Ezetimibe 10 MG TAB PO SCH (08:29)
[2021-03-20] MEDS: Apixaban 5 MG TAB PO SCH (08:29)
[2021-03-20] MEDS: Fluticasone Propionate Nasal Spray 16 gm Bottle NASAL SCH (08:30)
[2021-03-20] MEDS: Nicotine 21 MG PATCH TD SCH (08:30)
[2021-03-20] MEDS: Metoprolol Tartrate 25 MG TAB PO SCH (08:30)
[2021-03-20 11:17] VITALS: BP 136/61; TEMP 96.4
== END 2021-03-20 13:00 | disposition home or self-care (01) | DRG 189 ==
LOC: CSHERS 18:08 → CSHERHOLD 03-15 05:07 → CSHTELE 03-15 08:24
PROVIDERS: ADMIT Family Medicine; ATTEND Family Medicine
DX: J96.01 Acute respiratory failure with hypoxia (principal); J44.1 Chronic obstructive pulmonary disease with (acute) exacerbation; J45.901 Unspecified asthma with (acute) exacerbation; I25.10 Atherosclerotic heart disease of native coronary artery without angina pectoris; G47.33 Obstructive sleep apnea (adult) (pediatric); Z20.822 Contact with and (suspected) exposure to COVID-19; E78.5 Hyperlipidemia, unspecified; I10 Essential (primary) hypertension; F17.210 Nicotine dependence, cigarettes, uncomplicated; F41.1 Generalized anxiety disorder; G62.9 Polyneuropathy, unspecified; K21.9 Gastro-esophageal reflux disease without esophagitis; Z88.0 Allergy status to penicillin; Z79.01 Long term (current) use of anticoagulants; Z79.899 Other long term (current) drug therapy; Z95.5 Presence of coronary angioplasty implant and graft; Z86.711 Personal history of pulmonary embolism; Z86.718 Personal history of other venous thrombosis and embolism; Z90.710 Acquired absence of both cervix and uterus; Z90.49 Acquired absence of other specified parts of digestive tract; Z99.89 Dependence on other enabling machines and devices
CPT/HCPCS: 36415; 71045; 71275; 80048; 80053; 83735; 83880; 84484; 85025; 87633; 87804; 93005; 93010; 93306; 94640; 94760; 96374; J0456; J0696; J1100; J2920; J3490; J7050; J7512; J7620; J7626; U0002

== ENCOUNTER 2021-12-09 10:59 | Outpatient (CLI) | payer BC | END 2021-12-09 11:00 | disposition home or self-care (01) | LOC: CSHCP 10:59 | PROVIDERS: ATTEND Internal Medicine Critical Care Medicine | DX: J44.9 Chronic obstructive pulmonary disease, unspecified (principal) | CPT/HCPCS: 94060; 94726; 94729; 94760 ==

== ENCOUNTER 2022-05-07 10:35 | Outpatient (CLI) | payer BC | END 2022-05-07 10:36 | disposition home or self-care (01) | LOC: CSHCP 10:35 | PROVIDERS: ATTEND Internal Medicine Critical Care Medicine | DX: J44.9 Chronic obstructive pulmonary disease, unspecified (principal) | CPT/HCPCS: 94060; 94726; 94729; 94760 ==

== ENCOUNTER 2022-12-16 14:02 | Emergency (ER) | payer BC ==
[2022-12-16] MEDS ORDERED: Ondansetron ODT 4 MG TAB ONE (14:58)
[2022-12-16 15:50] LABS: SARS-CoV-2 NAA Rapid Test Not Detected (NotDetected)
[2022-12-16] MEDS ORDERED: Ibuprofen 200 MG TAB ONE (16:15)
[2022-12-16 16:20] LABS: Bilirubin 6 (Negative); Blood, Urine 25 (Negative); Clarity Clear (Clear); Glucose, Urine (Dipstick) Normal (Negative); Ketone, Urine Negative (Negative); Leukocyte 25 (Negative); Nitrite Positive (Negative); Protein, Urine (Dipstick) 30 mg/dl (Neg-Trace)
[2022-12-16 16:57] LABS: CAUTI Indications for Culture Pelvic or flank pain
[2022-12-16 16:59] LABS: Bacteria/HPF 3+ HPF (None Seen)
[2022-12-16 17:01] LABS: Urine Culture Reflex No No
== END 2022-12-16 16:58 | disposition home or self-care (01) ==
LOC: CSHERS 14:02
DX: J10.1 Influenza due to other identified influenza virus with other respiratory manifestations (principal); N39.0 Urinary tract infection, site not specified; F17.210 Nicotine dependence, cigarettes, uncomplicated; E78.5 Hyperlipidemia, unspecified; Z20.822 Contact with and (suspected) exposure to COVID-19; Z79.899 Other long term (current) drug therapy
CPT/HCPCS: 71045; 81001; 93005; Q0162

== ENCOUNTER 2023-12-18 10:20 | Outpatient (CLI) | payer BC | END 2023-12-18 10:21 | disposition home or self-care (01) | LOC: CSHMAMMO 10:20 | PROVIDERS: ATTEND Family Medicine | DX: Z12.31 Encounter for screening mammogram for malignant neoplasm of breast (principal) | CPT/HCPCS: 77063; 77067 ==

== ENCOUNTER 2024-12-20 07:08 | Day surgery (SDC) | payer BC ==
[2024-12-13 11:08] VITALS: BMI 43.6
[2024-12-20] MEDS ORDERED: PROPOFOL 40 ML ONE (09:45)
[2024-12-20] MEDS ORDERED: Ondansetron PF 4 MG/2 ML Vial ONE (10:29)
[2024-12-20] MEDS ORDERED: PROPOFOL 20 ML ONE (11:08)
== END 2024-12-20 11:47 | disposition home or self-care (01) ==
LOC: CSHSDC 07:08
PROVIDERS: ATTEND Surgery
PROC: 0DBL8ZX Excision of Transverse Colon, Via Natural or Artificial Opening Endoscopic, Diagnostic (ICD-10-PCS; principal; 2024-12-20)
PROC: 0DBH8ZX Excision of Cecum, Via Natural or Artificial Opening Endoscopic, Diagnostic (ICD-10-PCS; principal; 2024-12-20)
PROC: 0DB98ZX Excision of Duodenum, Via Natural or Artificial Opening Endoscopic, Diagnostic (ICD-10-PCS; principal; 2024-12-20)
PROC: 0DB78ZX Excision of Stomach, Pylorus, Via Natural or Artificial Opening Endoscopic, Diagnostic (ICD-10-PCS; principal; 2024-12-20)
DX: Z12.11 Encounter for screening for malignant neoplasm of colon (principal); D12.3 Benign neoplasm of transverse colon; K63.5 Polyp of colon; K22.10 Ulcer of esophagus without bleeding; K29.00 Acute gastritis without bleeding; I10 Essential (primary) hypertension; J44.9 Chronic obstructive pulmonary disease, unspecified; Z88.0 Allergy status to penicillin; Z88.8 Allergy status to other drugs, medicaments and biological substances; Z90.710 Acquired absence of both cervix and uterus; Z90.49 Acquired absence of other specified parts of digestive tract; Z86.0100 Personal history of colon polyps, unspecified; Z79.82 Long term (current) use of aspirin; Z79.899 Other long term (current) drug therapy
CPT/HCPCS: 88305; 88342; J2250; J2405; J2704; J3010

== ENCOUNTER 2025-01-27 13:46 | Outpatient (CLI) | payer BC | END 2025-01-27 13:47 | disposition home or self-care (01) | LOC: CSHMAMMO 13:46 | PROVIDERS: ATTEND Family Medicine | DX: Z12.31 Encounter for screening mammogram for malignant neoplasm of breast (principal) | CPT/HCPCS: 77063; 77067 ==